=== PATIENT | male | born 1965 | race Caucasian/White ===

== ENCOUNTER 2020-02-15 19:21 | Emergency (ER) | payer BC, OTHER ==
[~2020-02-15] VITALS: Ht 172.7 cm; Wt 77.1 kg
[~2020-02-15 19:21] MED LIST: LISI5TAB18 PO; OMEP40EC24 PO
[2020-02-15 19:36] VITALS: BP 121/61
[2020-02-15] MEDS: HYDROcodone/APAP 7.5/325 MG 1 TAB PO ONE (19:57)
[2020-02-15 20:15] VITALS: BP 121/61
--- NOTE | 2020-02-15 20:15 | NUR ---
Patient discharged with v/s stable. Written and verbal after care instructions given and explained. Patient alert, oriented and verbalized understanding of instructions. Ambulatory with steady gait. All questions addressed prior to discharge. ID band removed. Patient advised to follow up with PMD. Rx of MOTRIN AND NORCO given. Patient educated on indication of medication including possible reaction and side effects. Opportunity to ask questions provided and answered. PATIENT INSTRUCTED NOT TO DRIVE WHILE TAKING NARCOTICS/ NORCO. PT VERBALIZED UNDERSTANDING.
== END 2020-02-15 20:15 | disposition home or self-care (01) ==
LOC: MED 19:21
DX: M25.521 Pain in right elbow (principal); K21.9 Gastro-esophageal reflux disease without esophagitis; F17.210 Nicotine dependence, cigarettes, uncomplicated; I10 Essential (primary) hypertension; Z79.899 Other long term (current) drug therapy
CPT/HCPCS: 99283

== ENCOUNTER 2020-02-20 16:37 | Emergency (ER) | payer BC ==
[~2020-02-20] VITALS: Ht 172.7 cm; Wt 81.6 kg
[2020-02-20 16:43] VITALS: BP 107/72
--- NOTE | 2020-02-20 16:53 | NUR ---
PT AMB TO BED 11.
--- NOTE | 2020-02-20 16:59 | NUR ---
Dr. Childs is evaluating the patient at bedside.
--- NOTE | 2020-02-20 17:14 | NUR ---
54 Y/O C/O ANXIETY FOR 1 WEEK. PT DENIES ANY RECENT TRAUMATIC EVENT. DENIES ANY SOB/SP. RESP EVEN AND UNLABORED. LUNG SOUNDS CLEAR IN BILAT LOBES. VSS. DENIES ANY RECENT EXPOSURE TO SICK CONTACTS. GCS 15. CAP REFILL <3. SKIN COOL/DRY. PATIENT DOES NOT APPEAR TO BE ANY RECENT DISTRESS PMH: HTN, GERD NKA
[2020-02-20 17:18] VITALS: BP 107/72
== END 2020-02-20 17:18 | disposition home or self-care (01) ==
LOC: MED 16:37
DX: F41.9 Anxiety disorder, unspecified (principal); K21.9 Gastro-esophageal reflux disease without esophagitis; I10 Essential (primary) hypertension; F17.200 Nicotine dependence, unspecified, uncomplicated; Z90.49 Acquired absence of other specified parts of digestive tract; Z98.890 Other specified postprocedural states; Z79.899 Other long term (current) drug therapy
CPT/HCPCS: 81002; 99283

== ENCOUNTER 2020-02-28 08:44 | Emergency (ER) | payer BC ==
[~2020-02-28] VITALS: Ht 172.7 cm; Wt 81.6 kg
[2020-02-28 08:56] VITALS: BP 109/53
--- NOTE | 2020-02-28 09:06 | NUR ---
PT TAKEN TO BED 2.
--- NOTE | 2020-02-28 09:55 | NUR ---
PT STATES HE WAS REFERED TO [facility] BY HIS PCP FOR ELEVATED BLOOD GLUCOSE OF 518. FSBS 516 AT THIS TIME. PT STATES HE HAS BEEN HAVING GENERALIZED BODY ACHES & URINARY FREQUENCY X2 WEEKS. DENIES FEVER, N/V/D. DENIES DYSURIA/HEMATURIA. PT PROVIDED WITH GOWN, BED IN LOW POSITION, SIDE RAIL UP X1.
[2020-02-28] MEDS ORDERED: NACL 0.9% 1,000 ML IV ONE (10:10)
--- NOTE | 2020-02-28 10:15 | NUR ---
LABS COLLECTED AND HANDED TO [facility] FROM LAB
[2020-02-28 10:23] LABS: BASOPHILS % (AUTO) 0.2 % (0.0-2.0); EOSINOPHILS # (AUTO) 0.3 K/uL (0-0.4); EOSINOPHILS % (AUTO) 2.7 % (0.0-4.0); HEMATOCRIT 38.8 % (36-52); HEMOGLOBIN 13.2 g/dL (12.0-18.0); LYMPHOCYTES # (AUTO) 2.7 K/uL (2.0-11.5); LYMPHOCYTES % (AUTO) 22.3 % (20.5-51.1); MEAN CORPUSCULAR HEMOGLOBIN 31 pg (27-31); MEAN CORPUSCULAR HGB CONC 34 g/dL (33-37); MEAN CORPUSCULAR VOLUME 92.5 fL (80-94); MONOCYTES # (AUTO) 0.8 K/uL (0.8-1.0); MONOCYTES % (AUTO) 6.9 % (1.7-9.3); NEUTROPHILS # (AUTO) 8.2 K/uL (1.8-7.7); NEUTROPHILS % (AUTO) 67.9 % (42.2-75.2); PLATELET COUNT (AUTO) 329 K/uL (140-450); RED BLOOD CELL COUNT(AUTO) 4.19 MIL/uL (4.20-6.10); RED CELL DISTRIBUTION WIDTH 13.1 % (11.6-13.7)
[2020-02-28] MEDS ORDERED: KETOROLAC 30 MG/ML VIAL IVP ONE (10:25)
--- NOTE | 2020-02-28 10:35 | NUR ---
PT STATES HE DOES NOT WANT TO STAY IN THE HOSPITAL BECAUSE HE DOES NOT HAVE ANYONE TO CARE FOR HIS DOG AT HOME. DR. SÁNCHEZ MADE AWARE
[2020-02-28 10:36] LABS: APPEARANCE,URINE CLEAR (CLEAR); BILIRUBIN,URINE NEGATIVE (NEGATIVE); BLOOD, URINE NEGATIVE (NEGATIVE); COLOR,URINE YELLOW (YELLOW); LEUKOCYTE ESTERASE ,URINE NEGATIVE (NEGATIVE); NITRITE, URINE NEGATIVE (NEGATIVE); UGLUCOSE 3+ (NEGATIVE)
--- NOTE | 2020-02-28 10:37 | NUR ---
Dr. Childs is evaluating the patient at bedside.
--- NOTE | 2020-02-28 10:40 | NUR ---
RT AT BEDSIDE FOR ABG
[2020-02-28 10:53] LABS: ALBUMIN 3.1 g/dL (3.4-5.0); ANION GAP 14.4 (8-16); CARBON DIOXIDE 24.3 mmol/L (21-32); CREATININE 1.4 mg/dL (0.6-1.3); POTASSIUM 4.7 mmol/L (3.5-5.1); TOTAL BILIRUBIN 0.3 mg/dL (0.0-1.0)
[2020-02-28] MEDS ORDERED: INSULIN REGULAR, HUMAN 100 UNIT/ML VIAL IV ONE (11:05)
[2020-02-28 11:56] VITALS: BP 125/63
--- NOTE | 2020-02-28 11:56 | NUR ---
Patient discharged with v/s stable. Written and verbal after care instructions given and explained. Patient verbalized understanding. Ambulatory with steady gait. All questions addressed prior to discharge. Advised to follow up with PMD. PROVIDED PT WITH COPIES OF ALL LABWORK/PROCEDURE SUMMARIES OF TODAY
[2020-02-28] MEDS ORDERED: LISI40TA12 PO (16:28)
[2020-02-28] MEDS ORDERED: OMEP20EC11 PO (16:28)
== END 2020-02-28 11:56 | disposition home or self-care (01) ==
LOC: MED 08:44
DX: E11.65 Type 2 diabetes mellitus with hyperglycemia (principal); K21.9 Gastro-esophageal reflux disease without esophagitis; I10 Essential (primary) hypertension; F17.210 Nicotine dependence, cigarettes, uncomplicated; Z79.899 Other long term (current) drug therapy; Z90.49 Acquired absence of other specified parts of digestive tract
CPT/HCPCS: 36415; 36600; 71045; 80053; 81003; 82803; 82948; 84484; 85025; 93005; 96361; 96374; 96375; 99285; J1815; J1885; J7030; Q0092

== ENCOUNTER 2020-02-28 14:38 | Inpatient (IN) | payer BC ==
[~2020-02-28] VITALS: Ht 172.7 cm; Wt 80.7 kg
[2020-02-28 14:52] VITALS: BP 112/38
[2020-02-28] MEDS: NACL 0.9% 1,000 ML IV ONE ×2 (15:05→15:13)
[2020-02-28] MEDS ORDERED: LISI40TA12 PO (16:28)
[2020-02-28] MEDS ORDERED: OMEP20EC11 PO (16:28)
[2020-02-28] MEDS ORDERED: INSULIN LISPRO SLIDING SCALE 100 UNITS/ML VIAL SUBQ PRN (17:30)
[2020-02-28] MEDS ORDERED: DEXTROSE 50% 50 ML SYR IVP PRN (17:30)
[2020-02-28 17:50] VITALS: BP 104/60
[2020-02-28] MEDS ORDERED: NACL 0.9% 1,000 ML IV SCH (18:18)
[2020-02-28] MEDS ORDERED: ACETAMINOPHEN 325 MG TAB PO PRN (18:20)
[2020-02-28] MEDS ORDERED: MORPHINE SULFATE 2 MG/ML SYR IVP PRN (18:20)
[2020-02-28] MEDS ORDERED: DOCUSATE SODIUM 100 MG GELCAP PO PRN (18:20)
[2020-02-28] MEDS ORDERED: HYDROcodone/APAP 5/325 MG 1 TAB TAB PO PRN (18:20)
[2020-02-28] MEDS ORDERED: ONDANSETRON 4 MG/2 ML VIAL IM/IVP PRN (18:20)
[2020-02-28 19:11] LABS: PROTHROMBIN TIME 9.6 secs (10.8-13.4)
[2020-02-28 19:19] LABS: MAGNESIUM 1.6 mg/dL (1.8-2.4); PHOSPHORUS 3.2 mg/dL (2.5-4.9); THYROID STIMULATING HORMONE 2.55 uIU/mL (0.34-3.74)
[2020-02-28] MEDS ORDERED: BLOOD GLUCOSE MONITORING 1 DEV DEV FS SCH (21:00)
[2020-02-29] MEDS ORDERED: LISINOPRIL 20 MG TAB PO SCH (09:00)
[2020-02-29] MEDS ORDERED: PANTOPRAZOLE 40 MG INJ VIAL IVP SCH (09:00)
== END 2020-02-28 19:35 | disposition left against medical advice (07) | DRG 637 ==
LOC: MED 14:38 → EEVIPCON 14:38 → MTU 17:15
PROVIDERS: ADMIT General Practice; ATTEND General Practice
DX: E11.65 Type 2 diabetes mellitus with hyperglycemia (principal); N17.0 Acute kidney failure with tubular necrosis; E87.1 Hypo-osmolality and hyponatremia; E44.1 Mild protein-calorie malnutrition; F17.210 Nicotine dependence, cigarettes, uncomplicated; K21.9 Gastro-esophageal reflux disease without esophagitis; I10 Essential (primary) hypertension; Z53.29 Procedure and treatment not carried out because of patient's decision for other reasons; E86.0 Dehydration; E83.42 Hypomagnesemia; D72.829 Elevated white blood cell count, unspecified; F43.9 Reaction to severe stress, unspecified; Z79.899 Other long term (current) drug therapy; Z90.49 Acquired absence of other specified parts of digestive tract; Z68.27 Body mass index [BMI] 27.0-27.9, adult
CPT/HCPCS: 36415; 82948; 83036; 83690; 83735; 83880; 84100; 84443; 85610; 85730; 96360; 99285; J7030